=== PATIENT | male | born 1955 | race Caucasian/White ===

== ENCOUNTER → 2018-02-13 11:13 | Outpatient (CLI) | payer BC, SELFPAY ==
[2018-02-13 12:11] LABS: Basophils % 0.8 % (0.1-2.0); Eosinophils # 0.1 K/mm3 (0.0-0.4); Eosinophils % 2.9 % (0.1-12.0); Hematocrit 52.3 % (42.0-52.0); Hemoglobin 17.2 g/dL (14.1-18.0); Lymphocytes # 1.6 K/mm3 (0.7-4.5); Lymphocytes % 34.7 K/mm3 (10-50); Mean Corpuscular HGB Conc 32.9 g/dL (31.8-35.4); Mean Corpuscular Volume 94.2 fl (80-94); Mean Platelet Volume 6.6 fl (7.4-10.4); Monocytes # 0.3 K/mm3 (0.1-1.0); Monocytes % 7.4 % (1.7-9.3); Neutrophils # 2.5 K/mm3 (1.8-7.8); Neutrophils % 54.3 % (37.0-80.0); Platelet Count 151 K/mm3 (142-424); Red Blood Count 5.55 M/mm3 (4.60-6.20); Red Cell Distribution Width 12.5 % (11.5-17.5); White Blood Count 4.5 K/mm3 (4.8-10.8)
[2018-02-13 14:08] LABS: Alanine Aminotransferase 18 U/L (12-78); Albumin Level 4.1 gm/dL (3.4-5.0); Albumin/Globulin Ratio 1.3 (1.1-1.8); Alkaline Phosphatase 70 U/L (46-116); Anion Gap 10.5 mEq/L (5-15); Aspartate Amino Transferase 12 U/L (15-37); Bilirubin,Total 0.5 mg/dL (0.2-1.0); Blood Urea Nitrogen 19 mg/dL (7-18); Calcium 9.4 mg/dL (8.5-10.1); Carbon Dioxide 30 mmol/L (21.0-32.0); Chloride 106 mmol/L (98-107); Estimated Glomerular Filt Rate 75 ml/min (>60); GFR (African American) 91 ML/MIN (>60); Globulin 3.2 gm/dl (1.3-3.2); Glucose 98 mg/dL (74-106); Potassium 4.5 mmoL/L (3.5-5.1); Sodium 142 mmol/L (136-145); Total Protein,Serum 7.3 gm/dL (6.4-8.2)
== END ==
PROVIDERS: Visit Provider Nurse Practitioner Acute Care
DX: B18.2 Chronic viral hepatitis C (principal)
CPT/HCPCS: 36415; 80053; 85025; 87522

== ENCOUNTER → 2018-07-28 09:46 | Outpatient (CLI) | payer BC, SELFPAY ==
[2018-07-28 10:18] LABS: Eosinophils # 0.1 K/mm3 (0.0-0.4); Eosinophils % 2.4 % (0.1-12.0); Hematocrit 50.4 % (42.0-52.0); Hemoglobin 16.6 g/dL (14.1-18.0); Lymphocytes # 1.6 K/mm3 (0.7-4.5); Lymphocytes % 36.5 K/mm3 (10-50); Mean Corpuscular Hemoglobin 30.9 pg (27.0-31.2); Mean Corpuscular Volume 93.6 fl (80-94); Mean Platelet Volume 6.3 fl (7.4-10.4); Monocytes # 0.4 K/mm3 (0.1-1.0); Monocytes % 8.2 % (1.7-9.3); Neutrophils # 2.2 K/mm3 (1.8-7.8); Neutrophils % 51.9 % (37.0-80.0); Platelet Count 165 K/mm3 (142-424); Red Blood Count 5.39 M/mm3 (4.60-6.20); Red Cell Distribution Width 12.8 % (11.5-17.5); White Blood Count 4.3 K/mm3 (4.8-10.8)
[2018-07-28 10:50] LABS: Alanine Aminotransferase 18 U/L (12-78); Albumin Level 4.4 gm/dL (3.4-5.0); Albumin/Globulin Ratio 1.4 (1.1-1.8); Alkaline Phosphatase 75 U/L (46-116); Anion Gap 8.7 mEq/L (5-15); Aspartate Amino Transferase 18 U/L (15-37); Bilirubin,Total 0.7 mg/dL (0.2-1.0); Blood Urea Nitrogen 19 mg/dL (7-18); Calcium 9.7 mg/dL (8.5-10.1); Carbon Dioxide 32 mmol/L (21.0-32.0); Chloride 105 mmol/L (98-107); Creatinine,Serum 1.11 mg/dL (0.70-1.30); Estimated Glomerular Filt Rate 67 ml/min (>60); GFR (African American) 81 ML/MIN (>60); Globulin 3.1 gm/dl (1.3-3.2); Glucose 102 mg/dL (74-106); Potassium 4.7 mmoL/L (3.5-5.1); Sodium 141 mmol/L (136-145); Total Protein,Serum 7.5 gm/dL (6.4-8.2)
== END ==
PROVIDERS: PCP Family Medicine; Visit Provider Nurse Practitioner Acute Care
DX: B18.2 Chronic viral hepatitis C (principal)
CPT/HCPCS: 36415; 80053; 85025; 87522

== ENCOUNTER → 2018-08-01 15:12 | Outpatient (CLI) | payer BC, SELFPAY ==
--- NOTE | 2018-08-01 15:17 | XR_ITS ---
XR knee LT 3V HISTORY: ITS.REASON: LEFT KNEE PAIN ORDERING PHYSICIAN: Roro Terry PATIENT AGE: 62 years COMPARISON: None FINDINGS: No fracture or dislocation. . There are mild hypertrophic changes along the posterior patella. The joint spaces are well-preserved. Sclerotic density involves the proximal to mid shaft of the tibia nonspecific measuring approximately 2.5 cm. Dedicated tib-fib films may be of further value. This may be due to small bone infarction. IMPRESSION: 1. 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 2. Small nonspecific sclerotic focus of the proximal tibia
== END ==
PROVIDERS: PCP Family Medicine; Visit Provider Nurse Practitioner Family
DX: M25.562 Pain in left knee (principal)
CPT/HCPCS: 73562

== ENCOUNTER → 2018-08-03 11:33 | Outpatient (CLI) | payer BC, SELFPAY ==
--- NOTE | 2018-08-03 11:35 | XR_ITS ---
XR tibia fibula LT 2V Ordering Physician: Roro Terry Patient Age: 63 years: Male HISTORY: ITS.REASON: LEFT KNEE PAIN pain TECHNIQUE: AP and lateral left lower leg pain COMPARISON : Left knee from 08/01/2018 FINDINGS The tibia and fibula appear intact with no fracture evident. . We again see a sclerotic area posterior aspect proximal tibial shaft this measures up to 2.5 cm in length X 7 mm in AP. No periosteal reaction. No bone proliferationa . No osseous expansion or enlargement. This could be residual of the old injury or insult including old bone infarct. Less likely old healed fibrous cortical defect or other features. Old trauma conceivably could give this appearance.. Follow-up plain film within 4 months suggested ;. Or sooner if symptoms or pain here.. . The remainder the shaft of tibia and fibula are intact. 2 views of the ankle included unremarkable IMPRESSION tibia and fibula no fracture. No acute findings. The sclerotic focus at the posterior aspect of the tibia is again seen on on recent left knee studies. More likely this is a healing or process most likely is a benign feature. However suggest follow-up in 4-5 months stable or sooner if pain here
== END ==
PROVIDERS: PCP Family Medicine; Visit Provider Nurse Practitioner Family
DX: M25.562 Pain in left knee (principal)
CPT/HCPCS: 73590

== ENCOUNTER → 2018-08-29 08:12 | Outpatient (CLI) | payer BC, SELFPAY ==
--- NOTE | 2018-08-29 08:30 | US_ITS ---
US abdomen limited History:Chronic liver disease Ordering Physician:Jessa Hargrove Patient Age: 63 years Comparison:01/05/2017 Findings: Pancreas:Unremarkable. No obvious mass or abnormal fluid collection. No ductal dilatation Liver:No focal liver lesions demonstrated. Homogeneous echogenicity. No intrahepatic biliary ductal dilatation evident there is appropriate directional blood flow within the portal vein which does not appear dilated. Right Kidney:Unremarkable. Normal size and echogenicity. No hydronephrosis Gallbladder:No gallstones, gallbladder wall thickening, pericholecystic fluid, or biliary dilatation. Impression: 1. Unremarkable right upper quadrant ultrasound. 2. The liver has an unremarkable appearance
== END ==
PROVIDERS: Family Provider Nurse Practitioner Family; PCP Family Medicine; Visit Provider Nurse Practitioner Acute Care
DX: K76.9 Liver disease, unspecified (principal)
CPT/HCPCS: 76705

== ENCOUNTER → 2019-02-20 10:35 | Outpatient (POV) | payer BC, SELFPAY | PROVIDERS: Visit Provider Dermatology | DX: Z00.00 Encounter for general adult medical examination without abnormal findings (principal) ==

== ENCOUNTER → 2019-05-01 14:39 | Outpatient (CLI) | payer BC, SELFPAY ==
--- NOTE | 2019-05-01 | US_ITS ---
US thyroid HISTORY: ITS.REASON: THYROID NODULE SEEN ON SOFT TISSUE NECK U/S ORDERING PHYSICIAN: JOSE Gaston PATIENT AGE: 63 years Comparison: None FINDINGS: The right lobe of the thyroid gland measures 3.8 x 2.1 x 2.2 cm. There is heterogeneous echogenicity. On the right there is a 3.4 x 2 cm isoechoic nodule in the mid polar region with scattered areas of increased echogenicity. The left lobe is 3.5 x 1.8 x 1.3 cm. A small hyperechoic nodule is present along the mid polar region posteriorly at 5 x 8 mm. Small complex cystic nodules present in the mid polar region of 5 mm. IMPRESSION: Heterogeneous echogenicity of the thyroid with a dominant nodule on the right and 3.4 x 2 cm. Consider ultrasound guided fine needle aspiration of the dominant nodule on the right
--- NOTE | 2019-05-01 14:42 | US_ITS ---
US soft tissue head and neck CLINICAL INDICATION: ITS.REASON: CERVICAL LYMPHADENOPATHY ORDERING PHYSICIAN: JOSE Gaston PATIENT AGE: 63 years Comparison: None FINDINGS: The palpable areas reported in the right neck. At this area there is a 12 x 5 mm hypoechoic nodule which appears to represent a lymph node. The parotids and submandibular glands have an unremarkable appearance on both sides. Incidental note is made of a mass within the right lobe of the thyroid gland which is described in the thyroid ultrasound report. IMPRESSION: 1. Small lymph node is suspected in the right neck corresponding to the palpable abnormality. 2. Right thyroid nodule. 3. Consider CT of the neck without and with contrast for more thorough evaluation.
== END ==
PROVIDERS: PCP Physician Assistant; Visit Provider Physician Assistant
DX: R59.0 Localized enlarged lymph nodes (principal); D44.0 Neoplasm of uncertain behavior of thyroid gland
CPT/HCPCS: 76536

== ENCOUNTER → 2019-05-17 11:08 | Outpatient (CLI) | payer BC, SELFPAY ==
[2019-05-17 11:31] LABS: Blood Urea Nitrogen 23 mg/dL (7-18); Creatinine,Serum 1.04 mg/dL (0.70-1.30); Estimated Glomerular Filt Rate 72 ml/min (>60); GFR (African American) 87 ML/MIN (>60)
--- NOTE | 2019-05-17 11:35 | CT_ITS ---
CT soft tissue neck w con CLINICAL INDICATION: ITS.REASON: CERVICAL LYMPHADENOPATHY ORDERING PHYSICIAN: Sheela Moreau APRN PATIENT AGE: 63 years COMPARISON: None TECHNIQUE: Contrast Used:75ml Optiray 350 Axial images obtained with sagittal and coronal reformats. All CT scans at the facility use one or more dose reduction, viz: automated exposure control, ma/kV adjustment per patient size (including targeted exams where dose is matched to indication, i.e. head), or iterative reconstruction technique. FINDINGS: Patient reports palpable nodule in the right side mandibular region. Ultrasound suggested a small lymph node. A BB is placed over the palpable abnormality. At this region, there is an old 11 x 7 x 10 mm well-circumscribed rounded nodular density in the subcutaneous soft tissues deep to the fascia and superficial to the laryngeal cartilage consistent with a small lymph node. No dominant adenopathy is evident. There is other scattered smaller nodes in the neck. Artifact is present from the patient's dental work. The nasopharynx, parotid glands, submandibular glands have an unremarkable appearance. The epiglottis and glottic region is unremarkable. There is heterogeneous enlargement of the right lobe of the thyroid gland. No acute bony findings. No sinus air-fluid level. Images of the chest are unremarkable. IMPRESSION: 1. Right-sided neck palpable nodule appears to correspond to a small lymph node. No other areas of adenopathy evident. 2. Mildly enlarged heterogeneous right lobe of the thyroid gland.
--- NOTE | 2019-05-17 12:42 | US_ITS ---
US FNA Thyroid HISTORY: ITS.REASON: RT THYROID NODULE ORDERING PHYSICIAN: Sheela Moreau APRN PATIENT AGE: 63 years COMPARISON: None TECHNIQUE: Following obtaining informed consent, using aseptic technique and local anesthesia with buffered lidocaine, fine-needle aspiration was performed of the nodule of interest using sonographic guidance. 2 passes were made into the nodule with a 21-gauge needle. Specimen was given to cytology. The patient tolerated the procedure well without evidence of immediate complications and left the ultrasound suite in stable condition. CYTOLOGY:Standing IMPRESSION: Uneventful ultrasound-guided fine-needle aspiration of the right thyroid nodule. Cytology pending
== END ==
PROVIDERS: Visit Provider Nurse Practitioner
DX: E04.1 Nontoxic single thyroid nodule (principal); R59.0 Localized enlarged lymph nodes
CPT/HCPCS: 10005; 36415; 70491; 76536; 76942; 82565; 84520; Q9967

== ENCOUNTER → 2020-07-03 09:39 | Outpatient (CLI) | payer MEDICARE, OTHER, SELFPAY ==
--- NOTE | 2020-07-03 09:49 | CT_ITS ---
PROCEDURE: CT ABDOMEN PELVIS WO/W CON CLINICAL INDICATION: GROSS HEMATURIA COMPARISON: No exams were available for comparison TECHNIQUE: IV Contrast: 75ML OPTIRAY 350 Oral Contrast None Axial images obtained with sagittal and coronal reformats. All CT scans at the facility use one or more dose reduction, viz: automated exposure control, ma/kV adjustment per patient size (including targeted exams where dose is matched to indication, i.e. head), or iterative reconstruction technique. FINDINGS: LOWER THORAX: No acute finding ABDOMEN & PELVIS: Liver, gallbladder, and adrenal glands have an unremarkable appearance. Borderline splenomegaly at 13 cm. There is mild thickening of the GE junction which is nonspecific. The pancreas has an unremarkable appearance. No renal or ureteral calculi. No hydronephrosis. No renal mass. There is a small left renal cortical cyst inferiorly at 7 mm. The urinary bladder is contracted with mild thickening of the urinary bladder wall which is nonspecific and may be due to the contracted state the. The the prostate is enlarged at 5 cm with coarse calcification noted. No intestinal obstruction or free air is evident. There is a mild amount of retained colonic feces. No evidence of appendicitis. No acute bony anomalies. There is a small Schmorl's node along the superior endplate of L4. There is fusion of the SI joints on both sides IMPRESSION: 1. No acute abdominal or pelvic findings. No renal or ureteral calculi 2. Enlarged prostate. 3. There is contracted urinary bladder with mild thickening of the wall which could be due to the contracted state but could also be related to cystitis. 4. Other nonacute findings as described above Dictated b Gonzalo Gee MD 07/04/2020 12:57 Gonzalo Gee MD in [place] 07/04/2020 12:57
[2020-07-03 10:24] LABS: Blood Urea Nitrogen 22 mg/dl (9-20); Estimated Glomerular Filt Rate 85 ml/min (>60); GFR (African American) 102 ML/MIN (>60)
== END ==
PROVIDERS: PCP Physician Assistant; Visit Provider Family Medicine
DX: R31.0 Gross hematuria (principal)
CPT/HCPCS: 36415; 74178; 82565; 84520; Q9967

== ENCOUNTER 2020-12-13 14:32 | Emergency (ER) | payer MEDICARE, OTHER, SELFPAY ==
[2020-12-13 14:40] VITALS: BP 114/80; PULSE 80; RESP 14; TEMP 36.7; O2SAT 99; BMI 24.4
--- NOTE | 2020-12-13 14:51 | XR_ITS ---
PROCEDURE: XR RIBS LT MIN 3V W CXR1V Referring Doctor: Raymond Gilman Patient Age:65Y CLINICAL INDICATION: injuty Injury to the left ribs with pain left lower anterior ribs. History of old left rib fracture from years ago COMPARISON: No exams were available for comparison FINDINGS: A frontal view of the chest shows lungs to be clear with no acute cardiopulmonary disease. No pneumothorax but no pleural effusion. The heart and mediastinal structures appears satisfactory Multiple views of the left ribs were obtained. But no definitive acute fracture. There is some variation, undulation undulation in the contour the anterior lateral left 7th rib but more likely an old feature but a focal pain here that review viewed with some greater suspicion but is only seen on 1 projection and not confirmed on other views. IMPRESSION: No discrete acute left rib fractures Subtle undulation at the anterolateral left 7th rib. I would tend to favor is a old feature radiographically but if focally tender possible could reflect a recent injury. Certainly no displaced fractures or prominent findings . No pneumothorax, nor pleural effusion Dictated by: Endy Ramires MD 12/13/2020 17:43 Endy Ramires MD in [place] 12/13/2020 17:43
--- NOTE | 2020-12-13 15:18 | HMH.EDUTC ---
[facility] [place] Disposition Clinical Impression: Rib pain on left side Contusion of rib on left side Qualifiers: Encounter type: initial encounter Qualified Code(s): S20.212A - Contusion of left front wall of thorax, initial encounter Disposition: Home, Self-Care Condition on Discharge: Good Instructions: DI for Rib Contusion Additional Instructions: Follow up with your primary care physician. Take ibuprofen for pain. I sent in a prescription to your pharmacy. Rest and no heavy lifting for the next couple of weeks. GO TO THE ER FOR ANY WORSENING SYMPTOMS OR CONCERNS Prescriptions: Ibuprofen [Ibuprofen 600mg Tablet] 600 mg PO Q6HP PRN #30 tab PRN Reason: Mild Pain Transmission Status: Received by [id number] Referrals: Boby Cardona MD [Primary Care Provider] - Time of Disposition: 15:40 Medical Decision Making - Medical Records Medical records reviewed: No: I reviewed the patient's medical records. - Joselito Inquiry Pt receiving controlled substance: No Vital Signs: 12/13/20 14:40 12/13/20 15:42 Temperature 98.1 F 98.1 F Temperature Source Oral Pulse Rate 80 Pulse Rate [Right Brachial] 80 Respiratory Rate 14 14 Blood Pressure 114/80 Blood Pressure [Right Arm] 114/80 Blood Pressure Mean [Right Arm] 91 Blood Pressure Source [Right Arm] Automatic Cuff Blood Pressure Position [Right Arm] Sitting 02 Sat by Pulse Oximetry 99 Oxygen Delivery Method Room Air [facility] [place] HPI - General Stated complaint: AO 12/10/19 lt rib pain Time Seen by Provider: 12/13/20 15:18 - History of Present Illness Provider Complaint: He states that 3 days ago he was working to put up [employer] lights. He was crawling in the tight area beneath his deck. 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 He began to have soreness of his left ribs after that. Then earlier today he felt his left ribs pop again. He has had left rib pain since then. - Related Data Home Medications Medication Instructions Recorded Confirmed Aspirin [Aspirin 81mg chewable 81 mg PO DAILY 12/29/18 01/05/19 tab] Multivitamin [Multi-Vitamin Plain] 1 tab PO DAILY 12/29/18 01/05/19 Previous Rx's Medication Instructions Recorded Ibuprofen [Ibuprofen 600mg 600 mg PO Q6HP PRN #30 tab 12/13/20 Tablet] Allergies Allergy/AdvReac Type Severity Reaction Status Date / Time No Known Allergies Allergy Verified 12/29/18 15:11 [facility] History - Hepatitis A Screen Attestation statement:: This patient has been screened for Hepatitis A risk factors. I have reviewed the patient's past medical history: Yes Medical History: Denies:: Diabetes Mellitus Type 1, Diabetes Mellitus Type 2, Internal Pacemaker, Lung Disease, Seizures Other Surgeries: Yes: Other (Liver bx, ear tubes, tonsils). No: Pacemaker Family Hx:: Other (Not assessed) ROS Obtained: Yes All systems reviewed & no additional complaints - Constitutional Constitutional: Reports system reviewed and no additional complaints, except as docu - Eyes Eyes: Reports system reviewed and no additional complaints, except as docu - ENT Ears, Nose, Mouth, and Throat: Reports system reviewed and no additional complaints, except as docu - Cardiovascular Cardiovascular: Reports system reviewed and no additional complaints, except as docu - Respiratory Respiratory: Reports system reviewed and no additional complaints, except as docu - Gastrointestinal Gastrointestingal: Reports: system reviewed and no additional complaints, except as docu Physical Exam - General General appearance: alert, in no apparent distress - Head Head exam: atraumatic, normocephalic, normal inspection - Eye Eye exam: Present: normal appearance, PERRL, EOMI - ENT ENT exam: Present: normal exam, normal oropharynx, mucous membranes moist, TM's normal bilaterally, normal external ear exam - Neck Neck exam: Present: normal insp
[2020-12-13 15:42] VITALS: BP 114/80; PULSE 80; RESP 14; TEMP 36.7; O2SAT 99
== END 2020-12-13 15:59 | disposition home or self-care (01) ==
PROVIDERS: Emergency Provider Nurse Practitioner Family; PCP Family Medicine
DX: S20.212A Contusion of left front wall of thorax, initial encounter (principal); X50.0XXA Overexertion from strenuous movement or load, initial encounter; Y92.017 Garden or yard in single-family (private) house as the place of occurrence of the external cause
CPT/HCPCS: G0463; 71101; 99202

== ENCOUNTER → 2021-05-11 11:02 | Outpatient (CLI) | payer MEDICARE, OTHER, SELFPAY ==
--- NOTE | 2021-05-11 11:19 | XR_ITS ---
PROCEDURE: XR LUMBAR SPINE MIN 4V XR hip right 2-3 view with pelvis CLINICAL INDICATION: BACK PAIN COMPARISON: CR XR HIP RT 2-3V W/PELVIS from 05/11/2021 FINDINGS: Five views of the lumbar spine are obtained. There is mild scoliosis convex to the right. No acute fracture or subluxation. Moderate degenerative change of L3-4 with mild diffuse degenerative change elsewhere throughout the lumbar spine. SI joints are normal. Mild bilateral facet spondylosis at L4-5 and L5-S1. Some degenerative changes of the lower thoracic spine are noted. AP pelvis and coned views of the right hip show moderate degenerative change of both hip joints. No acute fracture or dislocation. SI joints are normal. No pelvic soft tissue abnormality. IMPRESSION: Moderate degenerative change of L3-4 with mild diffuse degenerative change elsewhere throughout the lumbar spine and mild bilateral facet spondylosis of the L4-5 and L5-S1. Some degenerative change of the lower thoracic spine. No acute fracture or subluxation of the lumbar spine. Moderate degenerative change of both hip joints. No acute fracture or dislocation of the pelvis or hips. Dictated by: Raymond Vanegas 05/11/2021 11:40 Raymond Vanegas in [facility] 05/11/2021 11:40
== END ==
PROVIDERS: PCP Family Medicine; Visit Provider Nurse Practitioner Family
DX: M54.5 Low back pain (principal); M25.551 Pain in right hip
CPT/HCPCS: 72110; 73502

== ENCOUNTER → 2021-09-01 11:55 | Outpatient (CLI) | payer MEDICARE, OTHER, SELFPAY | PROVIDERS: Visit Provider Nurse Practitioner | DX: Z20.822 Contact with and (suspected) exposure to COVID-19 (principal); U07.1 COVID-19 | CPT/HCPCS: C9803; U0003; U0005 ==

== ENCOUNTER → 2021-09-24 13:17 | Outpatient (CLI) | payer MEDICARE, OTHER, SELFPAY | PROVIDERS: PCP Family Medicine; Visit Provider Nurse Practitioner | DX: Z20.822 Contact with and (suspected) exposure to COVID-19 (principal); U07.1 COVID-19 | CPT/HCPCS: C9803; U0003; U0005 ==

== ENCOUNTER → 2021-10-30 10:12 | Outpatient (CLI) | payer MEDICARE, OTHER, SELFPAY ==
--- NOTE | 2021-10-30 10:16 | CT_ITS ---
PROCEDURE INFORMATION: Exam: CT Angiography Head With Contrast, Arteriography Exam date and time: 10/30/2021 10:16 AM Age: 66 years old Clinical indication: Pain; Headache; Additional info: Headache syndrome TECHNIQUE: Imaging protocol: Computed tomography angiography of the head with contrast. Exam focused on the arteries. 3D rendering (Not supervised by radiologist): MIP and/or 3D reconstructed images were created by the technologist. Radiation optimization: All CT scans at this facility use at least one of these dose optimization techniques: automated exposure control; mA and/or kV adjustment per patient size (includes targeted exams where dose is matched to clinical indication); or iterative reconstruction. Contrast material: ISOVUE 370; Contrast volume: 100 ml; Contrast route: INTRAVENOUS (IV); COMPARISON: [facility] Note soft tissue head and neck 05/01/2019 3:02 PM FINDINGS: ANTERIOR CIRCULATION: Right internal carotid artery: Unremarkable. Intracranial segment is patent with no significant stenosis. No aneurysm. Right middle cerebral artery: Unremarkable. No occlusion or significant stenosis. No aneurysm. Right anterior cerebral artery: Unremarkable. No occlusion or significant stenosis. No aneurysm. Left internal carotid artery: Unremarkable. Intracranial segment is patent with no significant stenosis. No aneurysm. Left middle cerebral artery: Unremarkable. No occlusion or significant stenosis. No aneurysm. Left anterior cerebral artery: Unremarkable. No occlusion or significant stenosis. No aneurysm. POSTERIOR CIRCULATION: Right vertebral artery: Unremarkable. No occlusion or significant stenosis. No aneurysm. Left vertebral artery: Unremarkable. No occlusion or significant stenosis. No aneurysm. Basilar artery: Unremarkable. No occlusion or significant stenosis. No aneurysm. Right posterior cerebral artery: Unremarkable. No occlusion or significant stenosis. No aneurysm. Left posterior cerebral artery: Unremarkable. No occlusion or significant stenosis. No aneurysm. Brain: No definite mass, mass effect, or midline shift. Cerebral ventricles: No ventriculomegaly. Bones/joints: Unremarkable. No acute fracture. Soft tissues: Unremarkable. IMPRESSION: No large vessel stenosis or occlusion.
--- NOTE | 2021-10-30 10:16 | CT_ITS ---
PROCEDURE INFORMATION: Exam: CT Angiography Neck With Contrast Exam date and time: 10/30/2021 10:16 AM Age: 66 years old Clinical indication: Pain; Headache; Additional info: Headache syndrome TECHNIQUE: Imaging protocol: Computed tomography angiography of the neck with contrast. 3D rendering (Not supervised by radiologist): MIP and/or 3D reconstructed images were created by the technologist. Radiation optimization: All CT scans at this facility use at least one of these dose optimization techniques: automated exposure control; mA and/or kV adjustment per patient size (includes targeted exams where dose is matched to clinical indication); or iterative reconstruction. Contrast material: ISOVUE 370; Contrast volume: 100 ml; Contrast route: INTRAVENOUS (IV); COMPARISON: NECKW CT soft tissue neck w con 05/17/2019 11:45 AM FINDINGS: Right common carotid artery: No stenosis. No dissection or occlusion. Right internal carotid artery: No stenosis of the extracranial segment. No dissection or occlusion. Right external carotid artery: No occlusion or stenosis of the origin. Left common carotid artery: No stenosis. No dissection or occlusion. Left internal carotid artery: No stenosis of the extracranial segment. No dissection or occlusion. Left external carotid artery: No occlusion or stenosis of the origin. Right vertebral artery: No stenosis. No dissection or occlusion. Left vertebral artery: No stenosis. No dissection or occlusion. Soft tissues: There are surgical clips in the right thyroid bed consistent with resection. Bones/joints: No acute fracture. IMPRESSION: No stenosis or occlusion. REFERENCES: NASCET CRITERIA. The degree of internal carotid artery stenosis is based on NASCET criteria. Normal is no stenosis. Mild is less than 50% stenosis. Moderate is 50-69% stenosis. Severe is 70% to 99% stenosis. Total occlusion is no detectable patent lumen.
--- NOTE | 2021-10-30 11:01 | CA_ITS ---
APPROVED REPORT [employer] Supervisor: Lilly Still RVT Laterality: Bilateral Study Quality: Good Indications: Bruit LT Doppler Spectral Velocity Analysis ECA (R) 88.80/10.70 cm/s ECA (L) 100.50/3.20 cm/s dICA (R) 93.00/16.00 cm/s dICA (L) 97.30/28.90 cm/s Ruben (R) 77.00/16.00 cm/s Ruben (L) 83.40/28.90 cm/s pICA (R) 68.40/17.10 cm/s pICA (L) 82.30/18.20 cm/s dCCA (R) 99.40/9.60 cm/s dCCA (L) 116.60/11.80 cm/s pCCA (R) 104.80/11.80 cm/s pCCA (L) 104.80/11.80 cm/s Vert (R) 52.40/13.90 cm/s Vert (L) 77.00/13.90 cm/s ICA/CCA 0.94 ICA/CCA 0.83 Findings Study suggests less than 20% stenosis of the right internal cartoid artery. Study suggests less than 20% stenosis of the left internal cartoid artery. Antegrade flow seen bilateral vertebral arteries. Conclusion Study suggests less than 20% stenosis of the right internal cartoid artery. Study suggests less than 20% stenosis of the left internal cartoid artery. Antegrade flow seen bilateral vertebral arteries. Electronically signed by : Gonzalo Gee MD 10/30/2021 14:24:07
== END ==
PROVIDERS: PCP Family Medicine; Visit Provider Nurse Practitioner Family
DX: G44.89 Other headache syndrome (principal); R09.89 Other specified symptoms and signs involving the circulatory and respiratory systems
CPT/HCPCS: 70496; 70498; 93880; Q9967

== ENCOUNTER → 2021-11-09 13:46 | Outpatient (CLI) | payer MEDICARE, OTHER, SELFPAY ==
[2021-11-09 15:08] LABS: Blood Urea Nitrogen 26 mg/dl (9-20); Estimated Glomerular Filt Rate 75 ml/min (>60); GFR (African American) 90 ML/MIN (>60)
[2021-11-09 15:37] LABS: Prostate Specific Ag Screen 0.8 ng/ml (0.0-4.0)
== END ==
PROVIDERS: Visit Provider Nurse Practitioner Family
DX: M54.41 Lumbago with sciatica, right side (principal); R35.0 Frequency of micturition; Z12.5 Encounter for screening for malignant neoplasm of prostate
CPT/HCPCS: 36415; 82565; 84520; G0103

== ENCOUNTER → 2021-11-12 09:00 | Outpatient (CLI) | payer MEDICARE, OTHER, SELFPAY ==
--- NOTE | 2021-11-12 09:03 | MR_ITS ---
PROCEDURE INFORMATION: Exam: MR Right Lower Extremity Joint Without Contrast; Hip Exam date and time: 11/12/2021 9:03 AM Age: 66 years old Clinical indication: Pain; Hip; Right; Additional info: Low back pain, hip pain. Lbp with RT hip and leg numbness. Symptoms xyrs. No injury or trauma. 16ml prohance given. Lot: [id number] exp: May 2023 bun: 26 cre: 1.0 gfr: 75. Prior x-ray 05-11-21. TECHNIQUE: Imaging protocol: MR of the Right lower extremity joint without contrast. Exam focused on the hip. Sequences: Coronal and axial large field of view sequences include the pelvis and both hips. Sagittal sequences are focused on the symptomatic hip. COMPARISON: 1. CR XR HIP RT 2-3V W/PELVIS 05/11/2021 11:[address] ABDOMEN PELVIS WO/W CON 07/03/2020 10:58 AM FINDINGS: Bones and cartilage: The sacroiliac joints are fused. There is no acute fracture or dislocation. No aggressive bone lesions are present. Trace degenerative narrowing involves the hips. Joint spaces: No significant joint effusion. Labrum: Unremarkable. No tear. TENDONS: Tendons of iliopsoas group: Unremarkable. No evidence of tear. Tendons of medial compartment of thigh: Unremarkable. No evidence of tear. Tendons of lateral rotators of hip: Unremarkable. No evidence of tear. Tendons of gluteal group: Unremarkable. No evidence of tear. Muscles: Unremarkable. Soft tissues: There are small bilateral fat-containing inguinal hernias, left greater than right. Bladder: Diffuse bladder wall thickening suggests partial bladder outlet obstruction. Reproductive: The prostate is heterogeneously enlarged. IMPRESSION: 1. Trace degenerative narrowing of the hips. 2. Fused sacroiliac joints. 3. Findings suggestive of partial bladder outlet obstruction by the heterogeneously enlarged prostate. 4. No acute fracture or dislocation.
--- NOTE | 2021-11-12 09:03 | MR_ITS ---
PROCEDURE: MR LUMBAR SPINE WO/W CON CLINICAL INDICATION: LOW BACK PAIN, HIP PAIN COMPARISON: CR XR RIBS LT MIN 3V W CXR1V from 12/13/2020 MR MR HIP RT WO CON from 11/12/2021 TECHNIQUE: Standard multiplanar multiecho sequences are performed without contrast. 3-D MIP and myelographic images are also rendered and reviewed FINDINGS: There is normal alignment. The spinal cord ends at the L1 level. L1-L2 and L2-L3: Mild rotary component and counter clockwise fashion the L1, L2, and L3 vertebral body. Mild facet hypertrophic change on the left. No disc herniation canal stenosis or other significant anomaly. L3-L4:: Minimal concentric bulging disc with mild facet and ligamentum hypertrophic change. L4-5: Minimal bulging disc with facet and ligamentum hypertrophy with mild right lateral recess narrowing and mild bilateral foraminal narrowing L5-S1: Mild facet and ligamentum hypertrophy. No extruded herniated disc or bony canal stenosis. There is heterogeneous signal intensity of the lumbar spine consistent with red marrow replacement. Small hemangiomas are present at T12, L4, and L5. There are linear areas of decreased T1 and T2 signal intensity within the sacral wing on each side possibly due to vascular channels. Nondisplaced old fractures would be included in the differential diagnosis. High-resolution CT of the sacrum may provide further evaluation. IMPRESSION: 1. Lumbar spondylosis. Please see above for detailed description at each level. No extruded herniated disc or canal stenosis 2. There are linear areas of decreased T1 and T2 signal intensity within the sacral wing on each side possibly due to vascular channels. Nondisplaced old fractures would be included in the differential diagnosis. High-resolution CT of the sacrum may provide further evaluation Dictated by: Gonzalo Gee MD 11/13/2021 10:06 oGnzalo Gee MD in [facility] 11/13/2021 10:06
== END ==
PROVIDERS: PCP Family Medicine; Visit Provider Nurse Practitioner Family
DX: M54.41 Lumbago with sciatica, right side (principal); M25.551 Pain in right hip
CPT/HCPCS: 72158; 73721; 76376; A9576

== ENCOUNTER → 2021-12-17 14:13 | Outpatient (CLI) | payer MEDICARE, OTHER, SELFPAY ==
--- NOTE | 2021-12-17 14:18 | CT_ITS ---
FINAL REPORT CLINICAL HISTORY: ABN MRI LUMBAR SPINE attn: Sacrum rt hip pain. no trauma FINDINGS: Axial images through the pelvis was performed by computed tomography. Sagittal and coronal reformatted images were obtained and reviewed. The bones are osteopenic. No fracture or dislocation is identified. There is partial fusion of the sacroiliac joints with degenerative change. There are small lucencies in the iliac bones, likely related to osteopenia. The musculature is intact. There is a small left inguinal hernia containing fat. IMPRESSION: Degenerative and chronic appearing findings as detailed above. Reviewed, Interpreted and Dictated by Elvin Blanchard III, MD Transcribed by Roro Basurto Authenticated by Elvin Blanchard III, MD on 12/17/2021 03:46:37 PM [facility]
--- NOTE | 2021-12-17 14:45 | XR_ITS ---
FINAL REPORT CLINICAL HISTORY: neck pain, headaches FINDINGS: CERVICAL SPINE Seven views, including obliques and flexion and extension views, were obtained. There is no acute fracture. There is mild anterolisthesis of C3 on C4 which increases slightly with flexion and reduces with extension. There are mild and moderate degenerative changes, greatest at C4-C5. There is mild right C4-C5 neuroforaminal narrowing. There postoperative changes of anterior lower neck. IMPRESSION: Mild anterolisthesis of C3 on C4 which increases slightly with flexion and reduces with extension. Mild and moderate degenerative changes, greatest at C4-C5. Mild right C4-C5 neural foraminal narrowing. Reviewed, Interpreted and Dictated by Elvin Blanchard III, MD Transcribed by Esme Rogers Authenticated by Elvin Blanchard III, MD on 12/17/2021 03:27:57 PM [facility]
--- NOTE | 2021-12-17 15:22 | MR_ITS ---
FINAL REPORT CLINICAL HISTORY: daily headache. pressure in head. headache and dizziness. symptoms xyrs. FINDINGS: Multiplanar MR imaging of the brain was performed without contrast. There is no evidence of intracranial hemorrhage or mass. The ventricular size is normal. There is no evidence of shift of the midline structures. No abnormal extra-axial fluid collection is identified. The posterior fossa and brainstem have an unremarkable appearance. No area of abnormal restricted diffusion is identified. Normal major vessel vascular flow voids are seen. IMPRESSION: Unremarkable brain with no acute intracranial abnormality. Reviewed, Interpreted and Dictated by Elvin Blanchard III, MD Transcribed by Sony Islas Authenticated by Elvin Blanchard III, MD on 12/17/2021 04:25:10 PM [facility]
[2021-12-17 17:14] LABS: Vitamin B12 776 pg/mL (239-931)
[2021-12-17 17:16] LABS: Folate > 20.00 ng/mL
== END ==
PROVIDERS: Nurse Practitioner Family; PCP Family Medicine; Visit Provider Nurse Practitioner Family
DX: G89.29 Other chronic pain (principal); H91.93 Unspecified hearing loss, bilateral; H93.13 Tinnitus, bilateral; M54.2 Cervicalgia; R51.9 Headache, unspecified; R68.89 Other general symptoms and signs; R93.7 Abnormal findings on diagnostic imaging of other parts of musculoskeletal system; M25.551 Pain in right hip
CPT/HCPCS: 36415; 70551; 72052; 72192; 82607; 82746

== ENCOUNTER → 2021-12-17 15:06 | Outpatient (CLI) | payer MEDICARE, OTHER, SELFPAY | PROVIDERS: PCP Family Medicine; Visit Provider Nurse Practitioner Family | DX: R51.9 Headache, unspecified (principal) | CPT/HCPCS: 36415; 82607; 82746 ==

== ENCOUNTER 2022-01-19 09:59 | Outpatient (RCR) | payer MEDICARE, OTHER, SELFPAY | END 2022-01-19 10:00 | disposition home or self-care (01) | LOC: PT 09:59 | PROVIDERS: PCP Family Medicine; Visit Provider Neurological Surgery | DX: M54.50 Low back pain, unspecified (principal) | CPT/HCPCS: 97110; 97163 ==

== ENCOUNTER 2022-01-19 11:00 | Outpatient (RCR) | payer MEDICARE, OTHER, SELFPAY ==
--- NOTE | 2021-12-23 09:53 | HMH.PTOPEV ---
PT Outpatient Evaluation Rehab PT Outpatient Evaluation Start: 12/23/21 09:40 Freq: Status: Active Protocol: Document 12/23/21 09:40 SOWMYA (Rec: 12/23/21 09:53 SOWMYA [id number]) Electronically Signed By Franky Correa, PT 12/23/21 09:40 Outpatient Therapy Subjective History Subjective History Patient is a 66 year old male presenting to outpatient PT with reports of chronic cervical spine pain with related cervicogenic headaches . Symptoms have been occurring for approx 20 years and have progressively gotten worse. Most recent imaging indicates mild anterolisthesis C3/4 inc with flx, as well as cervical spine degenerative issues. No other comorbidities to report. Chief Complaint Pain Symptom Type Ache Symptoms Relieved By Rest/Positioning,Prescription Meds Symptoms Aggravated By Sitting,Physical Activity, Lifting Prior Functional Limitations None Current Functional Limitations Reaching,Lifting,Housework, Desk Work/Reading,Driving, Sleeping Symptom Description Intermittent Level of pain today (0-10) 2 Pain scale - at its best (0-10) 0 Pain scale - at its worst (0-10) 6 Cervical Eval Palpation Cervical Muscles R Upper Trapezius,L Upper Trapezius Cervical/Thoracic Palpation Findings Tenderness Posture Head/C-Spine Posture Sitting Position C-Spine Flattened Head/C-Spine Posture Standing Position C-Spine Flattened Flexibility Deficits Upper Trapezius Muscle Length (R) Mild Tightness,(L) Mild Tightness Levaetor Scapulae Muscle Length (R) Mild Tightness,(L) Mild Tightness Pectoralis Minor Muscle Length (R) Mild Tightness,(L) Mild Tightness Passive Joint Mobility Cervical PIVM WNL: R OA L OA R AA L AA R C2/3 L C2/3 R C3/4 L C3/4 R C4/5 L C4/5 R C5/6
== END 2022-01-19 11:05 | disposition home or self-care (01) ==
LOC: PT 11:00
PROVIDERS: PCP Family Medicine; Visit Provider Nurse Practitioner Family
DX: R51.9 Headache, unspecified (principal); M54.2 Cervicalgia; G89.29 Other chronic pain
CPT/HCPCS: 20561; 97010; 97014; 97110; 97163; G0283

== ENCOUNTER → 2022-01-28 14:35 | Outpatient (POV) | payer MEDICARE, OTHER, SELFPAY ==
--- NOTE | 2022-01-28 15:14 | HMH.PMCON ---
Assessment and Plan (1) Sacroiliitis Status: Acute Category: Medical Code(s): M46.1 - Sacroiliitis, not elsewhere classified Also the patient he will benefit from right-sided SI joint injection under fluoroscopy #1. We will schedule him for the above injection to be performed at the next clinic visit 3 weeks. Joselito was reviewed and appropriate. (2) Chronic low back pain Status: Acute Category: Medical Code(s): M54.50 - Low back pain, unspecified; G89.29 - Other chronic pain (3) Right hip pain Status: Acute Category: Medical Code(s): M25.551 - Pain in right hip HPI - Data of Consult Patient: new to practice Consult date: 01/28/22 Requesting Physician: Brenda Shankar MD - Consult Narrative Reason for consult: Chronic low back pain, right hip pain History of present illness: Mr. Henriquez is a 66 year old male Zentz today for initial consultation for his chronic low back pain and right hip pain. Referred to our clinic by Dr Lipscomb with neurosurgery. He was evaluated by his neurosurgeon who recommended against any acute surgical intervention. He states that the pain started a few months ago and he denies any inciting factors such as any falls or trauma. He states that the pain is a dull deep ache in the right side of his low back and hip. He radiation of pain down his right leg to the knee level. He denies any pain past the level of his knees. He rates his pain as a 8 out of 10. Said the pain is sometimes worse when he is driving for prolonged periods of time. He has trialed bcew-xdy-qnxzhpv pain medications such as Tylenol and Aleve but notes very minimal pain relief with this pain. He has tried home stretching program for greater than 6 weeks without any pain relief. XRay of the lumbar spine was performed which demonstrated facet arthropathy at L3-4, L4-L5, and L5-S1. There is also ligamentum hypertrophy at L3-4, L4-L5, L5-S1. CC: Brenda Shankar MD [facility] History Medical History: Reports:: Cancer, Deep Vein Thrombosis, Hepatitis Denies:: Diabetes Mellitus Type 1, Diabetes Mellitus Type 2, Internal Pacemaker, Lung Disease, Seizures *Have you ever received a pneumonia vaccine?: Yes *Have you received a flu vaccine this season?: Yes Other Medical History: Reports: Arthritis, Hypothyroidism, Thyroid Disease Laterality Cases: Bilateral: Myringotomy (Ear Tubes), Tonsillectomy Other Surgeries: Yes: Thyroidectomy (rt side), Other (Liver bx, ear tubes, tonsils). No: Pacemaker Amputation: No Fractures: Yes - *Social History Smoking Status: Never smoker Alcohol Intake: current Alcohol Intake Frequency:: holidays/special occasions only Substance Use Type: denies use *Occupational Status:: retired Housing: house Household Members: spouse *Travel in the last 8 weeks: None Family Hx:: Other, Cancer, Stroke Review of Systems - Review of Systems Review of systems:: pertinent systems reviewed and negative unless documented below Meds Home Medications Medication Instructions Recorded Confirmed Type apple cider vinegar 500 mg tablet 450 mg PO .COMPLEX tab 12/15/21 01/21/22 History aspirin-caffeine 400 mg-32 mg 1 tab PO Q6H PRN 12/15/21 01/21/22 History tablet aspirin-sod bicarb-citric acid 325 1 tab PO DAILY PRN 12/15/21 01/21/22 History mg-1,916 mg-1,000 mg efferves tab cholecalciferol (vitamin D3) 50 50 mcg PO DAILY 12/15/21 01/21/22 History mcg (2,000 unit) capsule dutasteride 0.5 mg capsule 0.5 mg PO DAILY cap 12/15/21 01/21/22 History fexofenadine 180 mg tablet 180 mg PO DAILY 12/15/21 01/21/22 History fluticasone propionate 50 1 spray INTRANASAL PRN g 12/15/21 01/21/22 History mcg/actuation nasal spray,suspension garlic 1,000 mg capsule 1,000 mg PO DAILY cap 12/15/21 01/21/22 History montelukast 10 mg tablet 10 mg PO PRN tab 12/15/21 01/21/22 History jigykpta-bhm-xhpvs acid 300 1 tab PO DAILY 12/15/21 01/21/22 History mcg-lycopene 600 mcg-lutein 300 mcg tablet omega
[2022-01-28 15:38] VITALS: BP 148/77; PULSE 87; RESP 20; TEMP 37.1; O2SAT 96; BMI 24.4
== END ==
PROVIDERS: Visit Provider Anesthesiology Pain Medicine
DX: M46.1 Sacroiliitis, not elsewhere classified (principal); M54.50 Low back pain, unspecified; M25.551 Pain in right hip
CPT/HCPCS: 99202; G0463

== ENCOUNTER 2022-02-15 09:23 | Emergency (ER) | payer MEDICARE, OTHER, SELFPAY ==
[2022-02-15 10:16] VITALS: BP 138/73; PULSE 95; RESP 17; TEMP 36.6; O2SAT 98; BMI 24.4
--- NOTE | 2022-02-15 10:27 | HMH.EDUTC ---
[facility] Clinical Impression: Encounter for laboratory testing for COVID-19 virus Disposition: Home, Self-Care Condition on Discharge: Good Instructions: Preventing the Spread of Coronavirus Discharge Instructions Additional Instructions: Drink plenty of fluids. Take tylenol for pain or fever. Return if you begin to have difficulty breathing. Follow up with your regular doctor. GO TO THE ER FOR ANY WORSENING SYMPTOMS Quarantine until you know the results of your covid-19 test. If it is positive, the health department should call you and give you further instructions about your length of Quarantine and other things. Notify your school or workplace of your results and follow their instructions regarding return to work/school. Referrals: Boby Cardona MD [Primary Care Provider] - Time of Disposition: 10:31 Medical Decision Making - Medical Records Medical records reviewed: No: I reviewed the patient's medical records. - Joselito Inquiry Pt receiving controlled substance: No Vital Signs: 02/15/22 10:16 02/15/22 10:40 Temperature 97.8 F 98.7 F Temperature Source Oral Oral Pulse Rate 91 H Pulse Rate [Left Radial] 95 H Respiratory Rate 17 17 Blood Pressure 136/77 Blood Pressure [Right Arm] 138/73 Blood Pressure Mean [Right Arm] 94 02 Sat by Pulse Oximetry 98 Oxygen Delivery Method Room Air Room Air - Lab Data Lab results reviewed: Yes: I reviewed the patient's lab results. Orders (Tests/Meds): ORDERS Category Date Time Status Covid-19 Nasal PCR ([facility]) Routine Lab 02/15/22 10:12 Received [facility] [place] HPI - General Stated complaint: wants covid test Time Seen by Provider: 02/15/22 10:27 Mode of Arrival: Ambulatory Source of Information: Patient Limitations: No Limitations Description of Symptoms (Recalled from Triage Doc. by RN): pt to [facility] stating he just wants a pcr covid test. pt does not have any complaints. HEENT Symptoms (Recalled from RN notes): No Resp Symptoms (Recalled from RN notes): No Skin Symptoms (Recalled from RN notes): No MS Symptoms (Recalled from RN notes): No Functional Status (Recalled from RN notes): na - History of Present Illness Provider Complaint: He is here to have a covid 19 test due to him being scheduled for surgery. He denies any complaints at this time. - Related Data Home Medications Medication Instructions Recorded Confirmed apple cider vinegar 500 mg tablet 450 mg PO .COMPLEX tab 12/15/21 01/21/22 aspirin-caffeine 400 mg-32 mg 1 tab PO Q6H PRN 12/15/21 01/21/22 tablet aspirin-sod bicarb-citric acid 325 1 tab PO DAILY PRN 12/15/21 01/21/22 mg-1,916 mg-1,000 mg efferves tab cholecalciferol (vitamin D3) 50 50 mcg PO DAILY 12/15/21 01/21/22 mcg (2,000 unit) capsule dutasteride 0.5 mg capsule 0.5 mg PO DAILY cap 12/15/21 01/21/22 fexofenadine 180 mg tablet 180 mg PO DAILY 12/15/21 01/21/22 fluticasone propionate 50 1 spray INTRANASAL DAILY g 12/15/21 01/21/22 mcg/actuation nasal spray,suspension garlic 1,000 mg capsule 1,000 mg PO DAILY cap 12/15/21 01/21/22 montelukast 10 mg tablet 10 mg PO DAILY tab 12/15/21 01/21/22 nspglvym-baz-mroyc acid 300 1 tab PO DAILY 12/15/21 01/21/22 mcg-lycopene 600 mcg-lutein 300 mcg tablet omega-3 fatty acids 1,000 mg 1,000 mg PO DAILY 12/15/21 01/21/22 capsule polyethylene glycol 3350 17 gram 17 g PO DAILY 12/15/21 01/21/22 oral powder packet psyllium husk 0.4 gram capsule 0.4 g PO DAILY 12/15/21 01/21/22 vitamins A,C,Q-mspt-vydhoj 7,160 2 tab PO BID 12/15/21 01/21/22 unit-113 mg-100 unit tablet zinc gluconate 50 mg tablet 50 mg PO DAILY 12/15/21 01/21/22 meloxicam 7.5 mg tablet 7.5 mg PO DAILY tab 01/13/22 01/21/22 Amitriptyline HCl [Elavil 10mg 20 mg PO HS 01/28/22 tablet] Azelastine HCl [Azelastine Nasal 1 spray INTRANASAL BID 01/28/22 Neponset 30mL Bottle] SUMAtriptan succinate [Sumatriptan See Rx Instructions PO .COMPLEX 01/28/22 Succinate]
[2022-02-15 10:40] VITALS: BP 136/77; PULSE 91; RESP 17; TEMP 37.1; O2SAT 99
== END 2022-02-15 10:40 | disposition home or self-care (01) ==
PROVIDERS: Emergency Provider Nurse Practitioner Family; PCP Family Medicine
DX: Z11.52 Encounter for screening for COVID-19 (principal)
CPT/HCPCS: 99211; C9803; U0003; U0005

== ENCOUNTER → 2022-10-12 09:15 | Outpatient (POV) | payer MEDICARE, OTHER, SELFPAY ==
[2022-10-12 09:35] VITALS: BP 140/78; PULSE 95; RESP 18; O2SAT 97; BMI 24.4
--- NOTE | 2022-10-12 09:56 | A.OFFVIS_ITS ---
[facility] Pain Management SOAP Note Subjective:: Patient is a pleasant 67-year-old male who presents today for follow-up. We are currently treating the patient for degenerative disc disease of cervical spine, chronic neck pain, lumbar facet arthropathy, ligamentum hypertrophy, right hip pain, sacroiliitis. Today the patient rates his pain a 3 out of 10. Patient denies any new trauma or injury. Patient denies any change location or type of pain he experiences. Patient states his pain is all in his low back along the right side that radiates into his right hip and down his right leg to his knee. Patient describes this as a achy sensation that is intermittent. Patient states it is aggravated with increased activity. Patient states he was previously scheduled for an SI injection however he did have to cancel this appointment due to prostate surgery and them advising him to not get steroids at that time. Patient is interested in an injection at today's visit. Patient does manage his pain with Tylenol and Aleve as needed. Patient is also tried physical therapy and at home stretching and exercise with minimal improvement. Patient is not on any scheduled medications. His Joselito is [phone]. It has been reviewed and appropriate. Review of Systems: General: No recent weight changes, no fever, no sleep disturbances Respiratory: No cough, no shortness of air, no recurring pulmonary infections Cardiovascular/peripheral vascular: No chest pain, no palpitations, no edema, no shortness of breath Gastrointestinal: No new onset incontinence, normal bowel movements reported Genitourinary: No new onset incontinence Musculoskeletal: Low back pain, right hip pain, right leg pain Psychiatric: [Normal mood/affect] Neurological: [Denies weakness in extremities], [denies balance issues] Objective:: Physical Exam: General: Alert and oriented x3, no acute distress, pleasant and cooperative Lungs: Respirations even and unlabored, symmetrical chest expansion Eyes: PERRL Musculoskeletal: Flexion and extension of lumbar [spine] somewhat guarded secondary to pain, [antalgic gait noted]. Extreme point tenderness along right SI and positive right Jae's, Rae's, Gaenslen's, compression and distraction exam Neurological: Speech clear, no gross sensory deficit Assessment:: Degenerative disc disease of cervical and lumbar spine with lumbar radiculopathy symptoms, chronic neck pain, lumbar facet arthropathy, ligamentum hypertrophy, right hip pain, sacroiliitis Plan:: Patient continues to experience significant pain in his low back that radiates into his right hip and down his right leg. Patient did have limited range of motion of his lumbar spine during today's visit and extreme point tenderness along his right SI with positive right Jae's, Rae's, Gaenslen's, compression and distraction exam. I have recommended that the patient do a diagnostic SI injection. Risk and benefits were discussed with the patient. The patient would like to proceed forward with this plan of care. The patient is not on any blood thinners. We will schedule the patient for a right SI injection. Patient has been instructed to contact the clinic with any concerns before the next appointment. Dr. Rubin has reviewed this note and agrees with this plan of care. This note was dictated using voice recognition software and make contain errors or omissions. PFSH PFSH Social History Smoking Status: Never smoker alcohol intake: current substance use type: denies use current occupational status: retired Travel in the last 8 weeks: None household members: spouse housing: house caffeine: Yes
== END ==
PROVIDERS: PCP Family Medicine; Visit Provider Nurse Practitioner Family
DX: M51.16 Intervertebral disc disorders with radiculopathy, lumbar region (principal); M50.30 Other cervical disc degeneration, unspecified cervical region; M47.26 Other spondylosis with radiculopathy, lumbar region; M46.1 Sacroiliitis, not elsewhere classified
CPT/HCPCS: 99212; G0463

== ENCOUNTER 2022-10-26 07:57 | Day surgery (SDC) | payer MEDICARE, OTHER, SELFPAY ==
[2022-10-26 08:11] VITALS: BP 123/64; PULSE 84; RESP 18; TEMP 37.1; O2SAT 96; BMI 24.4
[2022-10-26 08:39] VITALS: BP 126/68; PULSE 74; RESP 18
[2022-10-26 08:49] VITALS: BP 139/64; PULSE 74; RESP 20
--- NOTE | 2022-10-26 08:52 | EXP.PAIN.PRO ---
Procedure Date: 10/26/22 Time: 08:22 Anesthesiologist:: Mikael Villaseñor CRNA Complications:: None Pre-procedure Diagnosis:: Right sacroiliitis Post-procedure Diagnosis:: Same Indications for Procedure:: Patient is a pleasant 67-year-old male that comes our clinic today with right posterior hip pain. He describes pain as constant, dull, sharp and stabbing. 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 He has difficulty putting on underwear and socks. He rates his pain 7/10. Procedure Details:: Procedure: Right sacroliliac joint injection under fluoroscopy Informed consent was obtained and the risk and benefits of the procedure were explained to the patient.~ The patient was taken to the procedure room and noninvasive monitors were placed including noninvasive blood pressure cuff and pulse oximeter.~ The patient was placed prone on the procedure table.~ The~ right hip was cleansed using Betadine as a cleansing solution.~ C-arm fluorosocpy was used to view the right SI joint.~ The skin and subcutaneous tissues were anesthetized using Lidocaine 1.5% and a 25-gauge needle.~ After this, a 22-gauge spinal needle was inserted under fluoroscopic guidance into the inferior aspect of the right SI joint.~ Omnipaque dye was injected and a good spread was seen throughout the joint.~ After this, approximately 5 mL of bupivacaine 0.25% and Depo-Medrol 40 mg was incrementally injected into the sacroiliac joint.~ The patient tolerated the procedure well with no complications.~ The patient was observed in the Pain Clinic, then discharged home neurologically intact.~ Plan and Disposition:: Patient was discharged without incident.
== END 2022-10-26 08:50 | disposition home or self-care (01) ==
LOC: SC.PAINP 07:58
PROVIDERS: PCP Family Medicine; Visit Provider Nurse Anesthetist, Certified Registered
DX: M46.1 Sacroiliitis, not elsewhere classified (principal)
CPT/HCPCS: 27096; G0260; J1040

== ENCOUNTER → 2022-11-15 09:47 | Outpatient (POV) | payer MEDICARE, OTHER, SELFPAY ==
[2022-11-15 10:16] VITALS: BP 133/77; PULSE 93; RESP 18; O2SAT 97; BMI 23.7
--- NOTE | 2022-11-15 12:36 | A.OFFVIS_ITS ---
[facility] Pain Management SOAP Note Subjective:: Patient is a pleasant 67-year-old male who presents today for follow-up after a right SI injection on 10/26/2022. Patient is currently being treated for sacroiliitis. After the injection, patient states that he had significant relief of 90 to 100% during the first week and rated his pain a 0 out of 10. He states that he does have some pain today in his right hip. He rates his pain today as 2 out of 10. He has been able to increase his activity during the past two weeks. Denies any issues after the injection. He was wanting to get a repeat injection but he is currently following urology for his prostate. He states that he started seeing blood again in his urine. He will hold off in any injections at this time. He is scheduled to see urology tomorrow. Joselito and drug screen appropriate. Review of Systems: General: No recent weight changes, no fever, no sleep disturbances Respiratory: No cough, no shortness of air, no recurring pulmonary infections Cardiovascular/peripheral vascular: No chest pain, no palpitations, no edema, no shortness of breath Gastrointestinal: No new onset incontinence, normal bowel movements reported Genitourinary: No new onset incontinence Musculoskeletal: Right hip pain Psychiatric: [Normal mood/affect] Neurological: [Denies weakness in extremities], [denies balance issues] Objective:: Physical Exam: General: Alert and oriented x3, no acute distress, pleasant and cooperative Lungs: Respirations even and unlabored, symmetrical chest expansion Eyes: PERRL Musculoskeletal: Right SI is positive for JESSIKA, Rae's, Garland's, Gaenslen's, compression, and distraction. Neurological: Speech clear, no gross sensory deficit Assessment:: Sacroiliitis Plan:: Patient continues to have some relief after his right SI injection. He does have some pain in his right hip/SI. He wants to hold off on any repeat injection for now until he sees urology. Follow up in 3 months. Patient has been instructed to contact the clinic with any concerns before the next appointment. Dr. Rubin has reviewed this note and agrees with this plan of care. This note was dictated using voice recognition software and make contain errors or omissions. [facility] Disclaimer: The information contained in this section may have been updated after the patient was seen, as this information can be updated by other users. Medical History (Updated 10/26/22 @ 08:13 by Myranda Buchanan RN) No significant past medical history Surgical History (Updated 10/26/22 @ 08:12 by Myranda Buchanan RN) H/O prostate biopsy Hx of tonsillectomy Family History (Updated 10/26/22 @ 08:12 by Myranda Buchanan RN) Other No significant family history Social History Smoking Status: Never smoker alcohol intake: current substance use type: denies use current occupational status: retired Travel in the last 8 weeks: None household members: spouse housing: house caffeine: Yes
== END ==
PROVIDERS: PCP Family Medicine; Visit Provider Student in an Organized Health Care Education/Training Program
DX: M46.1 Sacroiliitis, not elsewhere classified (principal)
CPT/HCPCS: 99212; G0463

== ENCOUNTER → 2023-01-31 09:32 | Outpatient (POV) | payer MEDICARE, OTHER, SELFPAY ==
--- NOTE | 2023-01-31 09:51 | EXP.PAIN.SOA ---
[facility] Pain Management SOAP Note Subjective:: Patient is a pleasant 67-year-old male who presents today for 3-month follow-up. We are currently treating the patient for sacroiliitis, low back pain. Today the patient rates his pain a 6 out of 10. Patient denies any new injury or trauma. Patient denies any change to the location or type of pain he experiences. Patient states it is all in his low back along the right side and describes it as a aching, throbbing sensation that is worse with increased activity. Patient did previously have a right SI injection on 10/26/2022 that provided at least 90 to 100% relief and has lasted up until the last couple of weeks. Patient was able to increase his activity with less pain symptoms. Patient did recently have a follow-up with his urologist to review over prostate issues and states that everything was okay and doing well at this time. Patient is not on any scheduled medications. His Joselito is [phone]. Its been reviewed and appropriate. Review of Systems: General: No recent weight changes, no fever, no sleep disturbances Respiratory: No cough, no shortness of air, no recurring pulmonary infections Cardiovascular/peripheral vascular: No chest pain, no palpitations, no edema, no shortness of breath Gastrointestinal: No new onset incontinence, normal bowel movements reported Genitourinary: No new onset incontinence Musculoskeletal: Low back pain, right leg pain Psychiatric: [Normal mood/affect] Neurological: [Denies weakness in extremities], [denies balance issues] Objective:: Physical Exam: General: Alert and oriented x3, no acute distress, pleasant and cooperative Lungs: Respirations even and unlabored, symmetrical chest expansion Eyes: PERRL Musculoskeletal: Flexion and extension of lumbar [spine] somewhat guarded secondary to pain, [antalgic gait noted] extreme tenderness along right SI and positive right Jae's, Rae's, Gaenslen's, compression and distraction exam Neurological: Speech clear, no gross sensory deficit ORT score updated with low risk Assessment:: Low back pain with lumbar radiculopathy symptoms, sacroiliitis Plan:: Patient is starting to experience worsening pain in his low back along the right side with symptoms radiating into his right upper leg. Patient did have limited range of motion of his lumbar spine along with extreme point tenderness along right SI and a positive right Jae's, Rae's, Gaenslen's, compression and distraction exam. Patient cannot tolerate prolonged sitting, standing, walking due to the pain. He states it does affect his ability to perform activities of daily living such as cooking and cleaning. Patient did previously have a SI injection that provided upwards of 90 to 100% relief lasting approximately 2 months. I have discussed with the patient that he may benefit from repeat right SI injections. Risk and benefits were discussed with the patient and he would like to proceed forward with this plan of care. We will schedule him for a right SI injection. Patient has been instructed to contact the clinic with any concerns before the next appointment. Dr. Rubin has reviewed this note and agrees with this plan of care. This note was dictated using voice recognition software and make contain errors or omissions. [facility] Disclaimer: The information contained in this section may have been updated after the patient was seen, as this information can be updated by other users. Medical History (Updated 10/26/22 @ 08:13 by Myranda Buchanan RN) No significant past medical history Surgical History (Updated 10/26/22 @ 08:12 by Myranda Buchanan RN) H/O prostate biopsy Hx of tonsillectomy Family History (Updated 10/26/22 @ 08:12 by Myranda Buchanan RN) Other No significant family history Social History Smoking Status: Never smoker alcohol intake: current substance use type: denies
[2023-01-31 11:10] VITALS: BP 113/71; PULSE 83; RESP 18; O2SAT 98; BMI 23.7
== END ==
PROVIDERS: PCP Family Medicine; Visit Provider Nurse Practitioner Family
DX: M46.1 Sacroiliitis, not elsewhere classified (principal); M54.16 Radiculopathy, lumbar region; M54.50 Low back pain, unspecified
CPT/HCPCS: 99212; G0463

== ENCOUNTER 2023-02-08 11:28 | Day surgery (SDC) | payer MEDICARE, OTHER, SELFPAY ==
[2023-02-08 11:39] VITALS: BP 122/71; PULSE 83; RESP 18; TEMP 36.6; O2SAT 98; BMI 23.7
[2023-02-08 11:52] VITALS: BP 138/70; PULSE 83; RESP 18; O2SAT 98
[2023-02-08 11:53] VITALS: BP 138/70; PULSE 83; RESP 18; O2SAT 98
[2023-02-08 11:57] VITALS: BP 131/58; PULSE 83; RESP 18; O2SAT 98
--- NOTE | 2023-02-08 11:57 | EXP.PAIN.PRO ---
Procedure Date: 02/08/23 Time: 11:30 Anesthesiologist:: Mikael Villaseñor CRNA Complications:: None Pre-procedure Diagnosis:: Right sacroiliitis Post-procedure Diagnosis:: Same Indications for Procedure:: Patient is a pleasant 67-year-old male that comes our clinic today for right sacroiliac joint injection. He has had this in the past with significant improvement terms of his overall right low lumbar right posterior hip pain. He rates his pain today 6/10. Patient has difficulty transitioning from sitting to standing. Procedure Details:: Procedure: Right sacroliliac joint injection under fluoroscopy Informed consent was obtained and the risk and benefits of the procedure were explained to the patient.~ The patient was taken to the procedure room and noninvasive monitors were placed including noninvasive blood pressure cuff and pulse oximeter.~ The patient was placed prone on the procedure table.~ The~ right hip was cleansed using Betadine as a cleansing solution.~ C-arm fluorosocpy was used to view the right SI joint.~ The skin and subcutaneous tissues were anesthetized using Lidocaine 1.5% and a 25-gauge needle.~ After this, a 22-gauge spinal needle was inserted under fluoroscopic guidance into the inferior aspect of the right SI joint.~ Omnipaque dye was injected and a good spread was seen throughout the joint.~ After this, approximately 5 mL of bupivacaine 0.25% and Depo-Medrol 40 mg was incrementally injected into the sacroiliac joint.~ The patient tolerated the procedure well with no complications.~ The patient was observed in the Pain Clinic, then discharged home neurologically intact.~ Plan and Disposition:: Patient was discharged without incident.
== END 2023-02-08 11:57 | disposition home or self-care (01) ==
PROVIDERS: PCP Family Medicine; Visit Provider Nurse Anesthetist, Certified Registered
DX: M46.1 Sacroiliitis, not elsewhere classified (principal)
CPT/HCPCS: 27096; G0260; J1040

== ENCOUNTER → 2023-02-25 13:36 | Outpatient (POV) | payer MEDICARE, OTHER, SELFPAY ==
--- NOTE | 2023-02-25 14:07 | EXP.PAIN.SOA ---
[facility] Pain Management SOAP Note Subjective:: Patient is a pleasant 67-year-old male who presents today for follow-up of right SI injection on 02/08/2023. We are currently the patient for sacroiliitis, low back pain. Today he rates his pain a 2 out of 10. He states he has had additional improvement with his second SI injection. Patient states that he is upwards of 30% better compared to the last injection with an overall improvement of upwards of 50% or more. Patient denies any new trauma or injury. Patient denies any change to location or type of pain he experiences. He does state his pain is an aching, throbbing sensation that is worse with increased activity. Patient is not on any scheduled medications. His Joselito is [phone]. Its been reviewed and appropriate. Review of Systems: General: No recent weight changes, no fever, no sleep disturbances Respiratory: No cough, no shortness of air, no recurring pulmonary infections Cardiovascular/peripheral vascular: No chest pain, no palpitations, no edema, no shortness of breath Gastrointestinal: No new onset incontinence, normal bowel movements reported Genitourinary: No new onset incontinence Musculoskeletal: Low back pain Psychiatric: [Normal mood/affect] Neurological: [Denies weakness in extremities], [denies balance issues] Objective:: Physical Exam: General: Alert and oriented x3, no acute distress, pleasant and cooperative Lungs: Respirations even and unlabored, symmetrical chest expansion Eyes: PERRL Musculoskeletal: Flexion and extension of lumbar [spine] somewhat guarded secondary to pain, [antalgic gait noted] Neurological: Speech clear, no gross sensory deficit Assessment:: Low back pain, sacroiliitis Plan:: Patient has had continued improvement following his SI injection and does not require any additional injective therapy at this time. Patient will return to clinic in 1 month for reevaluation of symptoms and plan of care. Patient has been instructed to contact the clinic with any concerns before the next appointment. Dr. Rubin has reviewed this note and agrees with this plan of care. This note was dictated using voice recognition software and make contain errors or omissions. [facility] Disclaimer: The information contained in this section may have been updated after the patient was seen, as this information can be updated by other users. Medical History No significant past medical history Surgical History H/O prostate biopsy Hx of tonsillectomy Family History Other No significant family history Social History Smoking Status: Never smoker alcohol intake: current substance use type: denies use current occupational status: retired Travel in the last 8 weeks: None household members: spouse housing: house caffeine: Yes
[2023-02-25 15:20] VITALS: BP 106/62; PULSE 91; RESP 18; O2SAT 97; BMI 23.7
== END ==
PROVIDERS: PCP Family Medicine; Visit Provider Nurse Practitioner Family
DX: M46.1 Sacroiliitis, not elsewhere classified (principal); M54.50 Low back pain, unspecified
CPT/HCPCS: 99212; G0463

== ENCOUNTER → 2023-04-07 09:59 | Outpatient (POV) | payer MEDICARE, OTHER, SELFPAY ==
--- NOTE | 2023-04-07 10:18 | EXP.PAIN.SOA ---
[facility] Pain Management SOAP Note Subjective:: Patient is a pleasant 67-year-old male who presents today for follow-up.? We are currently the patient for chronic right sacroiliitis, low back pain.? Today he rates his pain a 5 out of 10.? Patient denies any new trauma or injury. Patient denies any change location or type of pain he experiences. He states his pain is all in his low back around the right side with radiating symptoms into his hip and groin. Patient states this continues to be a chronic issue and describes it as an aching, throbbing sensation that is worse with increased activity. Patient states that he frequently cannot tolerate prolonged walking or standing due to the pain. It does affect his ability to perform activities of daily living such as cooking and cleaning. He also states that he frequently cannot lay on his right side due to the worsening pain symptoms. Occasionally it will interfere with his sleep. Patient does state that he frequently wakes up very stiff in the mornings and does do the treadmill daily to help loosen his muscles. Patient has had multiple SI injections in the past that did provide significant relief of at least 75% lasting a couple months. Patient is not on any scheduled medications.? His Joselito is [phone].? Its been reviewed and appropriate. Review of Systems: General: No recent weight changes, no fever, no sleep disturbances Respiratory: No cough, no shortness of air, no recurring pulmonary infections Cardiovascular/peripheral vascular: No chest pain, no palpitations,? no edema, no shortness of breath Gastrointestinal: No new onset incontinence, normal bowel movements reported Genitourinary: No new onset incontinence Musculoskeletal: Low back pain Psychiatric: [Normal mood/affect] Neurological: [Denies weakness in extremities], [denies balance issues] Objective:: Physical Exam: General: Alert and oriented x3, no acute distress, pleasant and cooperative Lungs: Respirations even and unlabored, symmetrical chest expansion Eyes: PERRL Musculoskeletal: Flexion and extension of lumbar [spine] somewhat guarded secondary to pain, [antalgic gait noted] extreme point tenderness along right SI with positive right Jae's, Rae's, Gaenslen's, compression and distraction exam Neurological: Speech clear, no gross sensory deficit Assessment:: Chronic right sacroiliitis, low back pain Plan:: Patient is experiencing worsening pain along his low back at the right side with limited range of motion. Patient did have extreme point tenderness along his right SI with a positive right Jae's, Rae's, Gaenslen's, compression and distraction exam. I have discussed with the patient that he may benefit from repeat right SI injection. Risk and benefits were discussed with the patient and he would like to proceed forward with this plan of care. Patient has tried and failed conservative therapy such as oral medication, heat and ice, topicals, physical therapy, at home stretching and exercise for longer than 6 weeks. Patient has had at least 75% improvement from previous SI injections lasting several months. I will prescribe the patient tizanidine 4 mg at bedtime and provide a 2-week supply of this medication. Patient will be scheduled for a right SI injection. Patient has been instructed to contact the clinic with any concerns before the next appointment. Dr. Rubin has reviewed this note and agrees with this plan of care. This note was dictated using voice recognition software and make contain errors or omissions. [facility] Disclaimer: The information contained in this section may have been updated after the patient was seen, as this information can be updated by other users. Medical History No significant past medical history Surgical History H/O prostate biopsy Hx of tonsillectomy Family History (Reviewed
[2023-04-07 10:38] VITALS: BP 122/66; PULSE 80; RESP 18; O2SAT 97; BMI 23.0
== END | disposition home or self-care (01) ==
PROVIDERS: PCP Family Medicine; Visit Provider Nurse Practitioner Family
DX: M46.1 Sacroiliitis, not elsewhere classified (principal); M54.50 Low back pain, unspecified
CPT/HCPCS: 99212; G0463

== ENCOUNTER 2023-04-12 11:51 | Day surgery (SDC) | payer MEDICARE, OTHER, SELFPAY ==
[2023-04-12 11:59] VITALS: BP 129/68; PULSE 85; RESP 18; O2SAT 97
[2023-04-12 12:00] VITALS: BP 137/75; PULSE 90; RESP 18; TEMP 36.6; O2SAT 97; BMI 23.0
[2023-04-12 12:18] VITALS: BP 134/72; PULSE 87; RESP 18; O2SAT 96
--- NOTE | 2023-04-12 12:21 | EXP.PAIN.PRO ---
Procedure Date: 04/12/23 Time: 12:00 Anesthesiologist:: Mikael Villaseñor CRNA Complications:: None Pre-procedure Diagnosis:: Right sacroiliitis Post-procedure Diagnosis:: Same Indications for Procedure:: Very pleasant 67-year-old male that comes our clinic today for right sacroiliac joint injection. He has had this in the past with moderate to significant improvement terms of his overall low right lumbar back pain, right posterior hip pain. Patient has extreme point tenderness over the right sacroiliac joint. He rates his pain 6/10. Procedure Details:: Procedure: Right sacroliliac joint injection under fluoroscopy Informed consent was obtained and the risk and benefits of the procedure were explained to the patient.~ The patient was taken to the procedure room and noninvasive monitors were placed including noninvasive blood pressure cuff and pulse oximeter.~ The patient was placed prone on the procedure table.~ The~ right hip was cleansed using Betadine as a cleansing solution.~ C-arm fluorosocpy was used to view the right SI joint.~ The skin and subcutaneous tissues were anesthetized using Lidocaine 1.5% and a 25-gauge needle.~ After this, a 22-gauge spinal needle was inserted under fluoroscopic guidance into the inferior aspect of the right SI joint.~ Omnipaque dye was injected and a good spread was seen throughout the joint.~ After this, approximately 5 mL of bupivacaine 0.25% and Depo-Medrol 40 mg was incrementally injected into the sacroiliac joint.~ The patient tolerated the procedure well with no complications.~ The patient was observed in the Pain Clinic, then discharged home neurologically intact.~ Plan and Disposition:: Patient was discharged without incident.
== END 2023-04-12 12:18 | disposition home or self-care (01) ==
PROVIDERS: PCP Family Medicine; Visit Provider Nurse Anesthetist, Certified Registered
DX: M46.1 Sacroiliitis, not elsewhere classified (principal)
CPT/HCPCS: 27096; G0260; J1040

== ENCOUNTER → 2023-05-04 13:12 | Outpatient (POV) | payer MEDICARE, OTHER, SELFPAY ==
[2023-05-04 13:21] VITALS: BP 114/69; PULSE 102; RESP 18; O2SAT 98; BMI 23.6
--- NOTE | 2023-05-04 13:33 | EXP.PAIN.SOA ---
[facility] Pain Management SOAP Note Subjective:: Patient is a pleasant 67-year-old male who presents today for follow-up of right SI injection on 04/12/2023. We are currently treating the patient for chronic sacroiliitis, low back pain. Today he rates his pain a 2 out of 10. Patient denies any new trauma or injury. Patient denies any change in location or type of pain he experiences. He does state that this injection has provided significant improvement of at least 50 to 75%. He states it is continuing to provide additional relief. Patient has had multiple SI injections that have provided significant relief. He is not on any scheduled medications. His Joselito is [phone]. Its been reviewed and appropriate. Review of Systems: General: No recent weight changes, no fever, no sleep disturbances Respiratory: No cough, no shortness of air, no recurring pulmonary infections Cardiovascular/peripheral vascular: No chest pain, no palpitations, no edema, no shortness of breath Gastrointestinal: No new onset incontinence, normal bowel movements reported Genitourinary: No new onset incontinence Musculoskeletal: Low back pain right-sided Psychiatric: [Normal mood/affect] Neurological: [Denies weakness in extremities], [denies balance issues] Objective:: Physical Exam: General: Alert and oriented x3, no acute distress, pleasant and cooperative Lungs: Respirations even and unlabored, symmetrical chest expansion Eyes: PERRL Musculoskeletal: Flexion and extension of lumbar [spine] somewhat guarded secondary to pain, [antalgic gait noted] Neurological: Speech clear, no gross sensory deficit Assessment:: Low back pain, chronic right-sided sacroiliitis Plan:: Patient has had significant improvement following his right SI injection and does not require any additional injective therapy at this time. Patient has had multiple injections that did give significant relief and he was able to increase his overall pain and functionality on a daily basis. I have discussed with the patient that he may benefit from a right SI stabilization procedure risk and benefits were discussed with the patient as well as educational handouts given during today's visit. We will follow-up with the patient in 1 month for reevaluation of symptoms and plan of care. Patient has been instructed to contact the clinic with any concerns before the next appointment. Dr. Rubin has reviewed this note and agrees with this plan of care. This note was dictated using voice recognition software and make contain errors or omissions. [facility] Disclaimer: The information contained in this section may have been updated after the patient was seen, as this information can be updated by other users. Medical History No significant past medical history Surgical History H/O prostate biopsy Hx of tonsillectomy Family History Other No significant family history Social History Smoking Status: Never smoker alcohol intake: current substance use type: denies use current occupational status: retired Travel in the last 8 weeks: None household members: spouse housing: house caffeine: Yes
== END ==
PROVIDERS: PCP Family Medicine; Visit Provider Nurse Practitioner Family
DX: M46.1 Sacroiliitis, not elsewhere classified (principal); M54.50 Low back pain, unspecified
CPT/HCPCS: 99212; G0463

== ENCOUNTER → 2023-06-02 10:02 | Outpatient (POV) | payer MEDICARE, OTHER, SELFPAY ==
--- NOTE | 2023-06-02 10:37 | A.OFFVIS_ITS ---
[facility] Pain Management SOAP Note Subjective:: Patient is a pleasant 67-year-old male who presents today for 1 month follow-up. We are currently treating the patient for chronic sacroiliitis and low back pain. Today he rates his pain a 2 out of 10. He denies any new trauma or injury. He denies any change to location or type of pain he experiences. He states that he is still getting significant relief from his right SI injection that was done in the middle of March. He states he has been able to increase his activity with decreased pain symptoms and he continues to do all the activities he loves such as golfing. At our last visit we did discuss a more permanent solution of the SI stabilization and he does present today with questions regarding this procedure. Patient is not on any scheduled medications. His Joselito is [phone]. Its been reviewed and appropriate. Review of Systems: General: No recent weight changes, no fever, no sleep disturbances Respiratory: No cough, no shortness of air, no recurring pulmonary infections Cardiovascular/peripheral vascular: No chest pain, no palpitations, no edema, no shortness of breath Gastrointestinal: No new onset incontinence, normal bowel movements reported Genitourinary: No new onset incontinence Musculoskeletal: Low back pain Psychiatric: [Normal mood/affect] Neurological: [Denies weakness in extremities], [denies balance issues] Objective:: Physical Exam: General: Alert and oriented x3, no acute distress, pleasant and cooperative Lungs: Respirations even and unlabored, symmetrical chest expansion Eyes: PERRL Musculoskeletal: Flexion and extension of lumbar [spine] somewhat guarded secondary to pain, [antalgic gait noted] Neurological: Speech clear, no gross sensory deficit Assessment:: Chronic sacroiliitis, low back pain Plan:: Patient is continuing to get significant improvement with his last SI injection and does not require additional injective therapy at this time. I have reviewed over with the patient the risk and benefits of the SI stabilization procedure and answered additional questions on this. Patient will return to clinic in 3 months for reevaluation of symptoms and plan of care. Patient has been instructed to contact the clinic with any concerns before the next appointment. Dr. Rubin has reviewed this note and agrees with this plan of care. This note was dictated using voice recognition software and make contain errors or omissions. [facility] Disclaimer: The information contained in this section may have been updated after the patient was seen, as this information can be updated by other users. Medical History No significant past medical history Surgical History H/O prostate biopsy Hx of tonsillectomy Family History Other No significant family history Social History Smoking Status: Never smoker alcohol intake: current substance use type: denies use current occupational status: retired Travel in the last 8 weeks: None household members: spouse housing: house caffeine: Yes
[2023-06-02 11:11] VITALS: BP 122/64; PULSE 83; RESP 20; BMI 23.6
== END ==
PROVIDERS: PCP Family Medicine; Visit Provider Nurse Practitioner Family
DX: M46.1 Sacroiliitis, not elsewhere classified (principal); G89.29 Other chronic pain; M54.50 Low back pain, unspecified
CPT/HCPCS: 99212; G0463

== ENCOUNTER → 2023-09-01 09:39 | Outpatient (POV) | payer MEDICARE, OTHER, SELFPAY ==
--- NOTE | 2023-09-01 09:49 | EXP.PAIN.SOA ---
[facility] Pain Management SOAP Note Subjective:: Patient is a pleasant 67-year-old male who presents today for 3 month follow-up. We are currently treating the patient for chronic sacroiliitis and low back pain. Today he rates his pain a 2 out of 10. He denies any new trauma or injury. He denies any change to location or type of pain he experiences. He states he is starting to notice a little bit more pain in his right SI area. He does describe this as an aching sensation that is worse with increased activity. He states it frequently is more noticeable with prolonged sitting or certain activity as going up the stairs. He does state the pain can interfere with his ability to perform activities of daily living such as cooking and cleaning. Patient's last injection was back in March that did provide several months of relief of approximately 80% or more. He is interested in possibly repeating this injection. Patient is not on any scheduled medications. His Joselito is [phone]. Its been reviewed and appropriate. Review of Systems: General: No recent weight changes, no fever, no sleep disturbances Respiratory: No cough, no shortness of air, no recurring pulmonary infections Cardiovascular/peripheral vascular: No chest pain, no palpitations, no edema, no shortness of breath Gastrointestinal: No new onset incontinence, normal bowel movements reported Genitourinary: No new onset incontinence Musculoskeletal: Low back pain, right hip pain Psychiatric: [Normal mood/affect] Neurological: [Denies weakness in extremities], [denies balance issues] Objective:: Physical Exam: General: Alert and oriented x3, no acute distress, pleasant and cooperative Lungs: Respirations even and unlabored, symmetrical chest expansion Eyes: PERRL Musculoskeletal: Flexion and extension of lumbar [spine] somewhat guarded secondary to pain, [antalgic gait noted] point tenderness along right SI with positive right Jae's, Rae's, Gaenslen's, compression and distraction exam Neurological: Speech clear, no gross sensory deficit Assessment:: Low back pain, chronic sacroiliitis Plan:: Patient is starting to experience more pain in his low back along the right side and into his right hip. Patient had limited range of motion of his lumbar spine during today's visit along with point tenderness at his right SI and a positive right Jae's, Rae's, Gaenslen's, compression and distraction exam. I have discussed with the patient that he may benefit from a repeat right SI injection. Risk and benefits of this injection were explained to the patient and he would like to proceed forward with this plan of care. Patient's last SI injection was in March and did provide more than 80% relief lasting several months. Patient will be scheduled for a right SI injection. Patient has been instructed to contact the clinic with any concerns before the next appointment. Dr. Rubin has reviewed this note and agrees with this plan of care. This note was dictated using voice recognition software and make contain errors or omissions. [facility] Disclaimer: The information contained in this section may have been updated after the patient was seen, as this information can be updated by other users. Medical History No significant past medical history Surgical History H/O prostate biopsy Hx of tonsillectomy Family History Other No significant family history Social History Smoking Status: Never smoker alcohol intake: current substance use type: denies use current occupational status: other Travel in the last 8 weeks: None household members: spouse housing: house caffeine: Yes
[2023-09-01 10:22] VITALS: BP 124/68; PULSE 70; RESP 18; O2SAT 95; BMI 23.0
== END ==
PROVIDERS: Visit Provider Nurse Practitioner Family
DX: M46.1 Sacroiliitis, not elsewhere classified (principal); M54.50 Low back pain, unspecified; G89.29 Other chronic pain
CPT/HCPCS: 99212; G0463

== ENCOUNTER 2023-09-20 09:45 | Day surgery (SDC) | payer MEDICARE, OTHER, SELFPAY ==
[2023-09-20 09:48] VITALS: BP 121/72; PULSE 84; RESP 16; TEMP 36.4; O2SAT 97; BMI 23.0
[2023-09-20 10:08] VITALS: BP 148/70; PULSE 83; RESP 18; O2SAT 95
[2023-09-20 10:20] VITALS: BP 128/64; PULSE 77; RESP 18; O2SAT 97
--- NOTE | 2023-09-20 11:42 | P.PCN_ITS ---
Procedure Date: 09/20/23 Time: 11:00 Anesthesiologist:: Mikael Villaseñor CRNA Complications:: None Pre-procedure Diagnosis:: Right sacroiliitis. Post-procedure Diagnosis:: Same. Indications for Procedure:: Patient is a very pleasant 68-year-old male that comes our clinic today for a repeat right sacroiliac joint injection. Patient has extreme point tenderness over the right sacroiliac joint upon examination. Patient reports difficulty transitioning from sitting to standing. Patient also reports low lumbar right- sided pain as well as right posterior hip pain with ambulation. Procedure Details:: Procedure: Right sacroliliac joint injection under fluoroscopy Informed consent was obtained and the risk and benefits of the procedure were explained to the patient.~ The patient was taken to the procedure room and noninvasive monitors were placed including noninvasive blood pressure cuff and pulse oximeter.~ The patient was placed prone on the procedure table.~ The~ right hip was cleansed using Betadine as a cleansing solution.~ C-arm fluorosocpy was used to view the right SI joint.~ The skin and subcutaneous tissues were anesthetized using Lidocaine 1.5% and a 25-gauge needle.~ After this, a 22-gauge spinal needle was inserted under fluoroscopic guidance into the inferior aspect of the right SI joint.~ Omnipaque dye was injected and a good spread was seen throughout the joint.~ After this, approximately 5 mL of bupivacaine 0.25% and Depo-Medrol 40 mg was incrementally injected into the sacroiliac joint.~ The patient tolerated the procedure well with no complications.~ The patient was observed in the Pain Clinic, then discharged home neurologically intact.~ Plan and Disposition:: Patient was discharged without incident.
== END 2023-09-20 10:18 | disposition home or self-care (01) ==
LOC: SC.PAINP 09:46
PROVIDERS: PCP Family Medicine; Visit Provider Nurse Anesthetist, Certified Registered
DX: M46.1 Sacroiliitis, not elsewhere classified (principal)
CPT/HCPCS: 27096; G0260; J1040

== ENCOUNTER → 2023-10-05 10:16 | Outpatient (POV) | payer MEDICARE, OTHER, SELFPAY ==
--- NOTE | 2023-10-05 10:20 | A.OFFVIS_ITS ---
[facility] Pain Management SOAP Note Subjective:: Patient is a pleasant 67-year-old male who presents today for follow-up of right SI injection on 09/20/2023. We are currently treating the patient for chronic sacroiliitis and low back pain. Today he rates his pain a 2 out of 10. He denies any new trauma or injury. He does state that this injection may have helped a little however he did not notice significant relief. In the past he states the first and the third SI injections seem to provide significant relief of more than 80% lasting several months. He does state he still occasionally has stiffness more prominent in the mornings or on days that he has done more activity. Patient does exercise on a daily basis and use a treadmill every morning. Patient does state that he will occasionally use Aleve on those days. Patient denies any heart or kidney issues. His Joselito has been reviewed and is appropriate. Review of Systems: General: No recent weight changes, no fever, no sleep disturbances Respiratory: No cough, no shortness of air, no recurring pulmonary infections Cardiovascular/peripheral vascular: No chest pain, no palpitations, no edema, no shortness of breath Gastrointestinal: No new onset incontinence, normal bowel movements reported Genitourinary: No new onset incontinence Musculoskeletal: Low back pain, right hip pain Psychiatric: [Normal mood/affect] Neurological: [Denies weakness in extremities], [denies balance issues] Objective:: Physical Exam: General: Alert and oriented x3, no acute distress, pleasant and cooperative Lungs: Respirations even and unlabored, symmetrical chest expansion Eyes: PERRL Musculoskeletal: Flexion and extension of lumbar [spine] somewhat guarded secondary to pain, [antalgic gait noted] Neurological: Speech clear, no gross sensory deficit Assessment:: Low back pain, chronic sacroiliitis Plan:: I discussed with the patient that he may benefit from the addition of meloxicam. Risk and benefits of this medication were discussed with the patient and he was counseled to discontinue all other NSAIDs while taking this medication and take it with food to minimize GI upset. I will send in a 14-day supply of meloxicam 15 mg daily. Patient will return to clinic in 1 month for reevaluation of symptoms and plan of care. Patient has been instructed to contact the clinic with any concerns before the next appointment. Dr. Rubin has reviewed this note and agrees with this plan of care. This note was dictated using voice recognition software and make contain errors or omissions. [facility] Disclaimer: The information contained in this section may have been updated after the patient was seen, as this information can be updated by other users. Medical History No significant past medical history Surgical History H/O prostate biopsy Hx of tonsillectomy Family History Other No significant family history Social History Smoking Status: Never smoker alcohol intake: current substance use type: denies use current occupational status: other Travel in the last 8 weeks: None household members: spouse housing: house caffeine: Yes
[2023-10-05 10:22] VITALS: BP 128/66; PULSE 86; RESP 18; O2SAT 97; BMI 23.0
== END | disposition home or self-care (01) ==
PROVIDERS: PCP Family Medicine; Visit Provider Nurse Practitioner Family
DX: M54.50 Low back pain, unspecified (principal); M46.1 Sacroiliitis, not elsewhere classified; G89.29 Other chronic pain
CPT/HCPCS: 99212; G0463

== ENCOUNTER → 2023-11-02 09:30 | Outpatient (POV) | payer MEDICARE, OTHER, SELFPAY ==
--- NOTE | 2023-11-02 09:59 | A.OFFVIS_ITS ---
[facility] Pain Management SOAP Note Subjective:: Patient is a pleasant 68-year-old male who presents today for 1 month follow-up. We are currently treating the patient for chronic sacroiliitis and low back pain. Today he rates his pain a 1 out of 10. Patient states that he has noticed continued improvement with his last SI injection. He states that initially he did not think it worked as well but then over time it has improved significantly. Patient was last prescribed meloxicam 15 mg daily however he states he has not had to take this on a regular basis due to the improved pain. Patient states he will occasionally use Aleve however only on days that he has not taken the meloxicam. His Joselito has been reviewed and is appropriate. Review of Systems: General: No recent weight changes, no fever, no sleep disturbances Respiratory: No cough, no shortness of air, no recurring pulmonary infections Cardiovascular/peripheral vascular: No chest pain, no palpitations, no edema, no shortness of breath Gastrointestinal: No new onset incontinence, normal bowel movements reported Genitourinary: No new onset incontinence Musculoskeletal: Low back pain Psychiatric: [Normal mood/affect] Neurological: [Denies weakness in extremities], [denies balance issues] Objective:: Physical Exam: General: Alert and oriented x3, no acute distress, pleasant and cooperative Lungs: Respirations even and unlabored, symmetrical chest expansion Eyes: PERRL Musculoskeletal: Flexion and extension of lumbar [spine] somewhat guarded secondary to pain, [antalgic gait noted] Neurological: Speech clear, no gross sensory deficit Assessment:: Low back pain, chronic sacroiliitis Plan:: Patient continues to do well and does not require any additional injection therapy. I will refill his meloxicam 15 mg and provide a 3-month supply of this medication. Patient will return to clinic in 3 months for reevaluation of symptoms and plan of care. Patient has been instructed to contact the clinic with any concerns before the next appointment. Dr. Rubin has reviewed this note and agrees with this plan of care. This note was dictated using voice recognition software and make contain errors or omissions. [facility] Disclaimer: The information contained in this section may have been updated after the keron enriquez was seen, as this information can be updated by other users. Medical History No significant past medical history Surgical History H/O prostate biopsy Hx of tonsillectomy Family History Other No significant family history Social History Smoking Status: Never smoker alcohol intake: current substance use type: denies use current occupational status: other Travel in the last 8 weeks: None household members: spouse housing: house caffeine: Yes
[2023-11-02 10:28] VITALS: BP 135/75; PULSE 91; RESP 18; O2SAT 97; BMI 23.0
== END | disposition home or self-care (01) ==
PROVIDERS: PCP Family Medicine; Visit Provider Nurse Practitioner Family
DX: M54.50 Low back pain, unspecified (principal); M46.1 Sacroiliitis, not elsewhere classified; G89.29 Other chronic pain
CPT/HCPCS: 99212; G0463

== ENCOUNTER 2024-02-13 09:32 | Outpatient (POV) | payer MEDICARE, OTHER, SELFPAY ==
--- NOTE | 2024-02-13 09:59 | A.OFFVIS_ITS ---
[facility] Pain Management SOAP Note Subjective:: Patient is a pleasant 68-year-old male who presents today for follow-up. He rates his pain today at 3 out of 10. He denies any new trauma or injury. Patient has continued to do well following his last SI injection. He states he will have pain from now and then however it is still very manageable. Patient was prescribed meloxicam 15 mg daily however he does not take this on a regular basis and does not need refills. His Joselito has been reviewed and is appropriate. Review of Systems: General: No recent weight changes, no fever, no sleep disturbances Respiratory: No cough, no shortness of air, no recurring pulmonary infections Cardiovascular/peripheral vascular: No chest pain, no palpitations, no edema, no shortness of breath Gastrointestinal: No new onset incontinence, normal bowel movements reported Genitourinary: No new onset incontinence Musculoskeletal: Low back pain Psychiatric: [Normal mood/affect] Neurological: [Denies weakness in extremities], [denies balance issues] Objective:: Physical Exam: General: Alert and oriented x3, no acute distress, pleasant and cooperative Lungs: Respirations even and unlabored, symmetrical chest expansion Eyes: PERRL Musculoskeletal: Flexion and extension of lumbar [spine] somewhat guarded secondary to pain, [antalgic gait noted] Neurological: Speech clear, no gross sensory deficit Assessment:: Low back pain, chronic sacroiliitis Plan:: Patient continues to do well and does not need any additional injection therapy at this time. Patient has been counseled to contact our office between now and his next visit if he feels like he does need additional injection therapy. Patient will return to clinic in 6 months for reevaluation of symptoms and plan of care. Patient has been instructed to contact the clinic with any concerns before the next appointment. Dr. Rubin has reviewed this note and agrees with this plan of care. This note was dictated using voice recognition software and make contain errors or omissions. [facility] Disclaimer: The information contained in this section may have been updated after the patient was seen, as this information can be updated by other users. Medical History No significant past medical history Surgical History H/O prostate biopsy Hx of tonsillectomy Family History Other No significant family history Social History Smoking Status: Never smoker alcohol intake: current substance use type: denies use current occupational status: retired Travel in the last 8 weeks: None household members: spouse housing: house caffeine: Yes
[2024-02-13 10:33] VITALS: BP 137/73; PULSE 88; RESP 18; O2SAT 96; BMI 23.7
== END 2024-02-13 23:59 ==
PROVIDERS: PCP Family Medicine; Visit Provider Nurse Practitioner Family
DX: M54.50 Low back pain, unspecified (principal); M46.1 Sacroiliitis, not elsewhere classified; G89.29 Other chronic pain
CPT/HCPCS: 99212; G0463